=== PATIENT | male | born 1950 | race Asian ===

== ENCOUNTER 2019-11-20 06:18 | Day surgery (SDC) | payer MEDICARE ==
[2019-11-20] MEDS ORDERED: LACTATED RINGERS 1,000 ML IV ONE ×2 (06:39→07:37)
[2019-11-20 07:57] VITALS: BP 119/107
== END 2019-11-20 06:19 | disposition home or self-care (01) ==
LOC: SDS 06:18
PROVIDERS: ATTEND Internal Medicine Gastroenterology
DX: Z12.11 Encounter for screening for malignant neoplasm of colon (principal); I48.91 Unspecified atrial fibrillation; E11.9 Type 2 diabetes mellitus without complications; Z86.010 Personal history of colon polyps; Z79.82 Long term (current) use of aspirin; Z53.09 Procedure and treatment not carried out because of other contraindication
CPT/HCPCS: 36415; 80053; 83690; 84443; 85025; 93005; 99283; 99284

== ENCOUNTER 2019-11-20 08:07 | Emergency (ER) | payer MEDICARE ==
[2019-11-20] MEDS ORDERED: DILTIAZEM 50 MG/10 ML VIAL IVP ONE (08:33)
[2019-11-20 10:06] LABS: BASOPHILS % (AUTO) 0.3 %; EOSINOPHILS % (AUTO) 0.2 %; HGB - HEMOGLOBIN 14.6 g/dL (14.0-18.0); LYMPHOCYTES % (AUTO) 16.1 %; MEAN CORPUSCULAR HEMOGLOBIN 32.5 pg (27.0-31.0); MEAN CORPUSCULAR HGB CONC 34.7 g/dL (32.0-36.0); MEAN CORPUSCULAR VOLUME 93.8 fL (80.0-94.0); MEAN PLATELET VOLUME 9.2 fL (7.4-11.4); MONOCYTES # (AUTO) 0.3 10^3/uL (0.0-1.0); MONOCYTES % (AUTO) 4.7 %; NEUTROPHILS # (AUTO) 4.8 10^3/uL (1.5-6.6); NEUTROPHILS % (AUTO) 78.4 %; PLT - PLATELET COUNT 233 10^3/uL (130-450); RED BLOOD COUNT 4.49 10^6/uL (4.70-6.10); RED CELL DISTRIBUTION WIDTH 12.5 % (12.0-15.0); WHITE BLOOD COUNT 6.1 x10^3/uL (4.8-10.8)
[2019-11-20 10:24] LABS: ALBUMIN/GLOBULIN RATIO 1.2 (1.0-2.2); BILIRUBIN,TOTAL 1.4 mg/dL (0.2-1.0); CALCIUM 8.6 mg/dL (8.5-10.3); TOTAL PROTEIN 7.4 g/dL (6.7-8.2)
[2019-11-20 10:39] VITALS: BP 123/82
--- NOTE | 2019-11-20 10:56 | ED Physician Documentation ---
History of Present Illness - Stated complaint Stated Complaint: AFIB - Chief complaint Chief Complaint: Cardiac - History obtained from History obtained from: Patient - Additonal information Additional information: Patient comes emergency department complaining of feeling dizzy this morning after taking his colonoscopy prep. Patient states that he has felt this way once before and actually wore a Holter monitor for a month afterward, but did not end up with any diagnosis, as his Holter monitor. The patient states that when he got to [facility], he was found to have an elevated heart rate and to be in A. fib. Nurse who accompanied the patient to the emergency department from [facility] states that the patient's heart rate was in the 150s, though his blood pressure was normal. Patient states he did take his blood pressure at home this morning after finding the dizziness and states that it was 110 over 70s, which was somewhat lower than his usual blood pressure of 130s over 80s. Patient states he did not have any chest pain or shortness of breath. He states he feels much better now. Patient denies any swelling in his legs. No recent symptoms of illness. He states he was up a good portion of the night with the colonoscopy prep, and was not sure some of the dizziness was just tiredness from that. No other complaints at this time. Review of Systems Ten Systems: 10 systems reviewed and negative Constitutional: reports: Reviewed and negative Eyes: reports: Reviewed and negative Ears: reports: Reviewed and negative Nose: reports: Reviewed and negative Throat: reports: Reviewed and negative Cardiac: reports: Reviewed and negative Respiratory: reports: Reviewed and negative GI: reports: Reviewed and negative : reports: Reviewed and negative Skin: reports: Reviewed and negative Musculoskeletal: reports: Reviewed and negative Neurologic: reports: Reviewed and negative Psychiatric: reports: Reviewed and negative Endocrine: reports: Reviewed and negative Immunocompromised: reports: Reviewed and negative PD PAST MEDICAL HISTORY - Past Medical History Cardiovascular: None Respiratory: None Endocrine/Autoimmune: None GI: None : None Psych: None Musculoskeletal: None Derm: None - Past Surgical History General: Appendectomy - Present Medications Home Medications: Ambulatory Orders Medication Instructions Recorded Confirmed Aspirin [Adult Aspirin Regimen] 81 mg PO DAILY 11/17/19 11/20/19 Simvastatin 20 mg PO DAILY 11/17/19 11/20/19 Diltiazem HCl [Diltiazem ER] 90 mg PO BID PRN #30 cap.er.12h 11/20/19 metFORMIN [Glucophage] 500 mg PO 11/20/19 - Allergies Allergies/Adverse Reactions: Allergies Allergy/AdvReac Type Severity Reaction Status Date / Time No Known Drug Allergies Allergy Verified 11/20/19 08:16 PD ED PE NORMAL - Vitals Vital signs reviewed: Yes - General General: Alert and oriented X 3, No acute distress - HEENT HEENT: Atraumatic, PERRL, EOMI, Moist mucous membranes - Neck Neck: Supple, no meningeal sign - Cardiac Cardiac: RRR, No murmur, Strong equal pulses - Respiratory Respiratory: No respiratory distress, Clear bilaterally - Abdomen Abdomen: Soft, Non tender, Non distended - Derm Derm: Warm and dry - Extremities Extremities: No deformity, No edema, No calf tenderness / cord - Neuro Neuro: Alert and oriented X 3 - Psych Psych: Normal mood, Normal affect Results - Vitals Vitals: Vital Signs - 24 hr 11/20/19 11/20/19 11/20/19 08:08 08:30 09:00 Temperature 36.8 C Heart Rate 81 81 82 Respiratory 15 10 L 15 Rate Blood Pressure 112/69 118/83 H 116/86 H O2 Saturation 99 98 99 11/20/19 11/20/19 11/20/19 09:30 10:00 10:30 Temperature Heart Rate 83 75 79 Respiratory 13 11 L 15 Rate Blood Pressure 135/89 H 126/84 H 123/82 H O2 Saturation 98 98 98 Oxygen O2 Source Room air - EKG (time done) 0811 Rate: Rate (enter#) (81) Rhythm: NSR [place]: Normal Intervals: Normal MS QRS: Normal Ischemia: Normal ST segments, T wave inversion (Lead III) Compare to prior EKG: Old EKG unavailable Computer interpretation: Agree with computer - Labs Labs: Laboratory Tests 11/20/19 11/20/19 11/20/19 10:00 10:00 10:00 WBC 6.1 RBC 4.49 L Hgb 14.6 Hct 42.1 MCV 93.8 MCH 32.5 H MCHC 34.7 RDW 12.5 Plt Count 233 MPV 9.2 Neut # (Auto) 4.8 Lymph # (Auto) 1.0 L [place] # (Auto) 0.3 Eos # (Auto) 0.0 Baso # (Auto) 0.0 Absolute Nucleated RBC 0.00 Nucleated RBC % 0.0 Sodium 134 L Potassium 3.9 Chloride 101 Carbon Dioxide 21 Anion Gap 12.0 BUN 14 Creatinine 1.0 Estimated GFR (MDRD) 74 L Glucose 103 H Calcium 8.6 Total Bilirubin 1.4 H AST 23 ALT 26 Alkaline Phosphatase 46 Total Protein 7.4 Albumin 4.0 Globulin 3.4 Albumin/Globulin Ratio 1.2 Lipase 24 TSH 1.38 PD MEDICAL DECISION MAKING - ED course Complexity details: reviewed results, re-evaluated patient, considered differential, d/w patient ED course: The patient was found to be in normal sinus rhythm upon arrival in the emergency department and was completely asymptomatic at that time. Laboratory studies were checked, including TSH, and found to be normal. EKG showed normal sinus rhythm. I discussed with the patient that preop is stated that the patient will not even be considered for another colonoscopy until he has seen cardiology and been cleared. Patient has been given the option being placed on a low dose of Cardizem for preventative measures, or of waiting until he sees cardiology to determine whether he wants to be on these medications or not. Additionally, given the patient the option to have a prescription for Cardizem to take as needed if he develops tachycardia again. The patient has opted for third option. We have discussed that if the patient Finds that his pulse is greater than 110 bpm, he may consider taking the Cardizem, but should check his blood pressure first. If his systolic is less than 110, he should come to the emergency department instead of taking the Cardizem at home. I have given him contact information for [facility] cardiology in [place], as patient does live in [place] and he and his and stated it would be easier for him to go to [place]. Patient is advised to call them as soon as possible to make follow-up appointment.We have discussed home management of the symptoms, as well as usual indications for return to the emergency department Departure - Departure Disposition: 01 Home, Self Care Clinical Impression: Atrial fibrillation with rapid ventricular response Condition: Stable Instructions: ED Afib Prescriptions: Diltiazem HCl [Diltiazem ER] 90 mg PO BID PRN #30 cap.er.12h PRN Reason: Tachycardia Comments: Please call [phone] to set up an appointment to follow-up with cardiology through [facility] in [place]. I would have discussed, you may take the medication prescribed, as needed for rapid heart rate (greater than 110 beats per minute). It is advisable to take your blood pressure before taking this medication. If your blood pressure top number is less then 110, you should refrain from taking the medicine and come to the emergency department instead. Discharge Date/Time: 11/20/19 11:05
== END 2019-11-20 11:05 | disposition home or self-care (01) ==
LOC: ED 08:07
DX: I48.20 Chronic atrial fibrillation, unspecified (principal); Z79.82 Long term (current) use of aspirin
CPT/HCPCS: 36415; 80053; 83690; 84443; 85025; 93005; 99283; 99284

== ENCOUNTER 2020-04-15 07:13 | Inpatient (IN) | payer MEDICARE ==
[2020-04-15] MEDS ORDERED: LACTATED RINGERS 1,000 ML IV ONE ×3 (07:20→09:10)
[2020-04-15 09:20] LABS: BASOPHILS % (AUTO) 0.5 %; EOSINOPHILS % (AUTO) 0.3 %; HGB - HEMOGLOBIN 13.5 g/dL (14.0-18.0); LYMPHOCYTES # (AUTO) 0.9 10^3/uL (1.5-3.5); LYMPHOCYTES % (AUTO) 15.3 %; MEAN CORPUSCULAR HEMOGLOBIN 32.5 pg (27.0-31.0); MEAN CORPUSCULAR HGB CONC 33.8 g/dL (32.0-36.0); MEAN CORPUSCULAR VOLUME 96.1 fL (80.0-94.0); MEAN PLATELET VOLUME 9.9 fL (7.4-11.4); MONOCYTES # (AUTO) 0.4 10^3/uL (0.0-1.0); MONOCYTES % (AUTO) 7.2 %; NEUTROPHILS # (AUTO) 4.6 10^3/uL (1.5-6.6); NEUTROPHILS % (AUTO) 76.5 %; PLT - PLATELET COUNT 236 10^3/uL (130-450); RED BLOOD COUNT 4.15 10^6/uL (4.70-6.10); RED CELL DISTRIBUTION WIDTH 12.5 % (12.0-15.0); WHITE BLOOD COUNT 6.1 x10^3/uL (4.8-10.8)
[2020-04-15 09:33] LABS: ALBUMIN 3.7 g/dL (3.2-5.5); ALBUMIN/GLOBULIN RATIO 1.1 (1.0-2.2); BILIRUBIN,TOTAL 1.2 mg/dL (0.2-1.0); CALCIUM 8.7 mg/dL (8.5-10.3); CREATININE 1.6 mg/dL (0.6-1.2); TOTAL PROTEIN 7.1 g/dL (6.7-8.2)
[2020-04-15] MEDS ORDERED: SODIUM CHLORIDE FLUSH 0.9% 10 ML SYRINGE IVP PRN (11:11)
[2020-04-15] MEDS ORDERED: ACETAMINOPHEN 325 MG TABLET PO PRN (11:11)
[2020-04-15] MEDS ORDERED: ONDANSETRON 4 MG/2 ML VIAL IVP PRN (11:11)
--- NOTE | 2020-04-15 11:42 | XRAY Report ---
PROCEDURE: Chest 1 View X-Ray INDICATIONS: Afib, Hypotension TECHNIQUE: One view of the chest was acquired. COMPARISON: None FINDINGS: Surgical changes and devices: None. Lungs and pleura: No pleural effusions or pneumothorax. Streaky opacities noted in the left lung bas e likely represent atelectasis. Mediastinum: Mediastinal contours appear normal. Heart size is normal. Bones and chest wall: No suspicious bony lesions. Overlying soft tissues appear unremarkable. IMPRESSION: 1. No acute cardiopulmonary disease process. 2. Streaky opacities in left lung base likely represent atelectasis. Reviewed by: Maricarmen Polanco MD, PhD on 04/15/2020 11:41 AM [facility] Approved by: Maricarmen Polanco MD, PhD on 04/15/2020 11:41 AM [facility] Station ID: [id number]
[2020-04-15] MEDS ORDERED: DIGOXIN 500 MCG/2 ML AMP IVP STA (11:50)
[2020-04-15] MEDS ORDERED: SODIUM CHLORIDE 0.9% 500 ML IV ONE (11:50)
[2020-04-15] MEDS: SODIUM CHLORIDE 0.9% 1,000 ML IV SCH ×2 (11:58→14:07)
--- NOTE | 2020-04-15 12:23 | HISTORY & PHYSICAL EXAMINATION ---
DATE OF SERVICE: 04/15/2020 Physician: Debbie Ray MD HISTORY OF PRESENT ILLNESS: This is a 69-year-old male of descent who has a history of diabetes on Metformin, hyperlipidemia on a statin. He underwent a colonoscopy in October of this year, the prep that he had before that colonoscopy resulted in him being lightheaded and in the recovery after the colonoscopy, he went into rapid atrial fibrillation. He was taken from the PACU to the emergency room then and had converted spontaneously to sinus rhythm. His disposition after the ER consisted of starting him on Cardizem tablets to take as a "pill in the pocket" treatment if he should get a heart rate over 110. He was also advised to see a Penal Officer for further evaluation and to be cleared for a future colonoscopy. The patient states he saw a Penal Officer at [place] (cannot remember his name) and there was no Echo or stress test done. The Penal Officer advised continuation with the same recommendation: to only use oral Cardizem p.r.n. heart rate greater than 110, and the patient was to measure his blood pressure to assure it was not hypotensive at the time, before taking Cardizem. The patient states he wore a 2-week monitor, ordered by that Penal Officer, which was entirely normal. He has had no episodes of feeling any palpitations (but he is currently in atrial fibrillation and does not feel palpitations now, however). He has been on aspirin since that October ER visit, taken daily. Today, the patient came in for a scheduled colonoscopy with polypectomy. He states that his prep again caused him to be lightheaded and he had a stumbling gait this morning. He had stable vital signs and was taken to the procedure and a polyp was removed. The other findings in the colon were essentially normal, per the patient. In recovery in PACU, he went into atrial fibrillation with rapid ventricular response, at rates of 140-150. His blood pressure with this is hypotensive with blood pressure of 79/50. The patient is not in any distress and does not feel the tachycardia. He admits to me he has never needed to take the Cardizem in these 6 months, that it was prescribed because he "did not feel any palpitations." The patient's mentation is slightly slow, which may be related to just having had conscious sedation, but also possibly from this low blood pressure. The patient will be admitted to inpatient status for management of atrial fibrillation with rapid ventricular response and for treatment of hypotension. PAST MEDICAL HISTORY: Paroxysmal atrial fibrillation, diabetes mellitus, hyperlipidemia. SOCIAL HISTORY: The patient is a nonsmoker who never smoked, drinks no alcohol except very rarely, he lives with his in [place]. FAMILY HISTORY: No inherited diseases. REVIEW OF SYSTEMS: There has been no fever, cough, diarrhea. He has been careful during the COVID isolation period. He stopped taking his aspirin, metformin and statin medicine 4 days before this procedure today. A comprehensive review of systems was performed and the pertinent positives are listed, the rest are negative. PHYSICAL EXAMINATION GENERAL: Middle-aged male. He is in no distress, sitting upright. VITAL SIGNS: Blood pressure 84/66, heart rate 147 in atrial fibrillation, afebrile, room air saturation 99%. HEENT: Unremarkable. NECK: Shows no JVD in a vertical position. No carotid bruits are heard. CHEST: Clear. HEART: Irregular, tachycardic. No murmurs are heard. ABDOMEN: Soft with decreased bowel sounds. Nontender. No organomegaly. Nondistended. EXTREMITIES: No clubbing, cyanosis or edema. NEUROLOGIC: Intact except some hesitation in speech noted when he was speaking on the phone to his . His gait was not assessed, as he is in bed and hypotensive. LABORATORY DATA: Labs were done in the PACU, ordered by the surgeon after the colonoscopy, when he went into rapid atrial fibrillation. These labs show sodium 137, potassium 4.3, chloride 100, CO2 of 19, anion gap 18, BUN 18, creatinine 1.6, glucose 106. Bilirubin 1.2. Normal liver tests. The hs- troponin normal at 9.1. White blood count 6.1, hemoglobin 13.5 with MCV of 96, RDW 12.5 and platelet count normal at 236. No INR was done. EKG: Atrial fibrillation with rapid rate, diffuse nonspecific ST-T changes. Compared to an EKG from October, the atrial fibrillation is new. IMPRESSION/DIAGNOSES 1. Hypotension. 2. Atrial fibrillation with rapid ventricular response. 3. Paroxysmal atrial fibrillation. 4. Acute kidney injury. 5. Abnormal electrocardiogram. 6. Diabetes mellitus. 7. Hyperlipidemia. PLAN: Admit the patient to the ICU because of the hypotension. Begin with fluid boluses and maintenance fluids. Check troponins x2, TSH and obtain an Echo to evaluate for structural heart disease. Begin the patient on iv Digoxin for rate slowing unless the blood pressure improves with the fluid pushes. We will plan to resume either his p.o. Cardizem or start a Diliazem drip, when blood pressure is better as well. Depending on his Echo results, his CHADS score will be calculated and he will either continue on daily aspirin or be advised about needing anticoagulation. Follow his BMP daily. Evaluation for coronary disease would need to be done after hospitalization. Resume his diet, advancing from clear liquids to a diabetic diet if okay with general surgery. General surgery consult will be requested to give further recommendations after the polypectomy he had today. Obtain an admission CXR. Check serum ketones, given the high anion gap in a diabetic. DEEP VENOUS THROMBOSIS PROPHYLAXIS: SCDs. CODE STATUS: FULL CODE. ATTESTATION: Patient is expected to be discharged or transferred to another facility within 96 hours: Yes. cc: Cristopher Hunt MD TD: 04/15/2020 11:51 MTDD
[2020-04-15 13:20] LABS: C. PNEUMONIAE- RESP PCR PANEL NOT DETECTED
[2020-04-15 14:32] LABS: GLUCOSE, URINE (UA) NEGATIVE (NEGATIVE); KETONES,URINE (UA) 15 mg/dL (NEGATIVE); LEUKOCYTE ESTERASE, URINE NEGATIVE (NEGATIVE); NITRITE,URINE NEGATIVE (NEGATIVE); OCCULT BLOOD,URINE NEGATIVE (NEGATIVE); PH,URINE 5.5 PH (5.0-7.5); PROTEIN,URINE NEGATIVE (NEGATIVE); UROBILINOGEN,URINE 0.2 (NORMAL) E.U./dL (NORMAL)
[2020-04-15 14:33] LABS: CLARITY,URINE CLEAR (CLEAR)
[2020-04-15 14:38] LABS: BILIRUBIN,URINE NEGATIVE (NEGATIVE); ICTOTEST,URINE NEGATIVE
[2020-04-15] MEDS ORDERED: diltiaZEM INJ 125 MG in DEXTROSE 5% 100 ML IV SCH (15:15)
--- NOTE | 2020-04-15 15:15 | PHARMACY PROGRESS NOTE ---
- Best Possible Medication History Admit Date and Time: 04/15/20 1111 Processed by: Nursing Medication History completed: Yes As the person ultimately responsible for medication therapy, providers are able to order a medication from an existing home medication list in [facility] via the "Reconcile Routine" prior to Confirmation of that medication by computer network support specialist. Such practice is discouraged except when the physician, in their clinical judgment, deems that a medical need exists for a medication without regard to previous use.
--- NOTE | 2020-04-15 16:34 | CONSULTATION NOTE ---
Referring Provider Name of Referring Provider:: Dr. Ray Consult Date: 04/15/20 Chief Complaint - Chief Complaint Chief Complaint: Tachyarrhythmia during colonoscopy History of Present Illness - Admitted From Admitted From:: Postanesthesia care unit - History Obtained From History obtained from: Patient Exam Limitations: NONE - History of Present Illness HPI Comment/Other: 69-year-old male who was attempted for colonoscopy recently at which time he was reported for an arrhythmia that on work-up was unremarkable. In October he was seen in the ER at which time he was thereafter referred to cardiology. Per patient there was no significant concerns or findings and patient thereafter was cleared to proceed with endoscopic evaluation. Patient has no symptoms, denying chest pain and/or shortness of breath, and again was advised of the indication to undergo colonoscopy for which he was a scheduled. He reported only nausea associated with his bowel prep. He underwent colonoscopy which was notable only for tachyarrhythmia during endoscopic evaluation. No hypotensive episodes. Single ascending colonic diminutive polyp was removed. Post procedure he continued to have persistent arrhythmia consistent with atrial fibrillation and hospitalist consult was called to evaluate the patient in postanesthesia care unit. I ordered CBC, CMP, troponin and stat EKG. History - Past Medical History Cardiovascular: reports: High cholesterol Respiratory: reports: None Endocrine/Autoimmune: reports: Type 2 diabetes GI: reports: Colon polyps : reports: None HEENT: reports: None Psych: reports: None Musculoskeletal: reports: None Derm: reports: None MRSA Hx?: No - Past Surgical History General: reports: Appendectomy Meds/Allgy - Home Medications Home Medications: Ambulatory Orders Medication Instructions Recorded Confirmed Aspirin [Adult Aspirin Regimen] 81 mg PO DAILY 11/17/19 04/15/20 Simvastatin 20 mg PO QPM 11/17/19 04/15/20 Diltiazem HCl [Diltiazem ER] 90 mg PO BID PRN #30 cap.er.12h 11/20/19 04/15/20 metFORMIN [Glucophage] 500 mg PO DAILY 11/20/19 04/15/20 - Allergies Allergies/Adverse Reactions: Allergies Allergy/AdvReac Type Severity Reaction Status Date / Time No Known Drug Allergies Allergy Verified 11/20/19 08:16 Review of Systems - Constitutional Constitutional: reports: Fatigue - Cardiovascular Cariovascular: reports: Irregular heart rate, Lightheadedness. denies: Palpitations, Chest pain, Syncope - Gastrointestinal Gastrointestinal: reports: Nausea, Vomiting. denies: Abdominal pain, Abdominal distention, Constipation, Black stools, Bloody stools - All Other Systems All Other Systems: reports: Reviewed and negative Exam - Vital Signs Vital Signs: Vital Signs x48h Temp Pulse Pulse Resp BP BP Pulse Ox 04/15/20 16:33 36.8 C 04/15/20 16:00 94 18 100/66 98 04/15/20 15:45 109 H 110/78 04/15/20 15:33 121/71 04/15/20 15:00 97 16 102/74 97 04/15/20 14:16 116 H 8 L 96/69 04/15/20 14:01 136 H 20 96/64 04/15/20 13:31 126 H 16 91/80 04/15/20 13:00 117 H 16 115/78 04/15/20 12:53 36.4 C L 143 H 16 100 04/15/20 12:46 126 H 11 L 95/82 H 04/15/20 12:31 131 H 24 93/77 04/15/20 12:18 143 H 04/15/20 12:16 147 H 10 L 121/103 H 04/15/20 12:15 117 H 9 L 04/15/20 12:01 149 H 17 04/15/20 12:00 131 H 132 H 17 127/106 H 119/82 H 100 04/15/20 11:59 141 H 12 04/15/20 11:50 136 H 23 119/82 H 04/15/20 11:47 137 H 04/15/20 11:32 147 H 20 84/66 L 99 04/15/20 11:00 36.4 C L 144 H 14 92/65 99 04/15/20 10:30 142 H 13 78/65 L 99 04/15/20 10:19 143 H 10 L 87/65 L 99 04/15/20 09:41 153 H 21 89/67 L 96 04/15/20 09:20 125 H 10 L 93/68 98 04/15/20 09:00 36.4 C L 138 H 14 89/67 L 100 - Physical Exam General Appearance: positive: No acute distress, Alert Eyes Bilateral: positive: Normal inspection, PERRL, EOMI ENT: positive: ENT inspection nml Neck: positive: Nml inspection Respiratory: positive: Chest non-tender, No respiratory distress, Breath sounds nml. negative: Wheezes, Rales, Rhonchi Cardiovascular: positive: Irregularly irregular, Tachycardia Abdomen: positive: Non-tender, No distention. negative: Tenderness, Guarding, Rebound Extremities: positive: Non-tender, Full ROM, Nml appearance Neurologic/Psychiatric: positive: Oriented x3, CN's nml (2-12), Motor nml, Sensation nml, Mood/affect nml Conclusion and Plan - Lab Results Laboratory Results 04/15/20 16:28: POC Whole Bld Glucose 98 04/15/20 15:33: Troponin I High Sens 79.4 H* 04/15/20 14:28: Urine Color YELLOW, Urine Clarity CLEAR, Urine pH 5.5, Ur Specific [place] 1.015, Urine Protein NEGATIVE, Urine Glucose (UA) NEGATIVE, Urine Ketones 15 H, Urine Occult Blood NEGATIVE, Urine Nitrite NEGATIVE, Urine Bilirubin NEGATIVE, Urine Urobilinogen 0.2 (NORMAL), Ur Leukocyte Esterase NEGATIVE, Ur Microscopic Review NOT INDICATED, Urine Culture Comments NOT INDICATED 04/15/20 12:10: Nasal Adenovirus (PCR) NOT DETECTED, Nasal B. parapertussis DNA (PCR) NOT DETECTED, Nasal Coronavir 229E PCR NOT DETECTED, Nasal Coronavir HKU1 PCR NOT DETECTED, Nasal Coronavir NL63 PCR NOT DETECTED, Nasal Coronavir OC43 PCR NOT DETECTED, Nasal Enterovir/Rhinovir PCR NOT DETECTED, Nasal Influenza B PCR NOT DETECTED, Nasal Influenza A PCR NOT DETECTED, Nasal Parainfluen 1 PCR NOT DETECTED, Nasal Parainfluen 2 PCR NOT DETECTED, Nasal Parainfluen 3 PCR NOT DETECTED, Nasal Parainfluen 4 PCR NOT DETECTED, Nasal RSV (PCR) NOT DETECTED, Nasal B.pertussis DNA PCR NOT DETECTED, Nasal C.pneumoniae (PCR) NOT DETECTED, Ron Human Metapneumo PCR NOT DETECTED, Nasal M.pneumoniae (PCR) NOT DETECTED, N fredis SARS-CoV-2 (PCR) NOT DETECTED 04/15/20 12:10: Nasal Screen MRSA (PCR) NEGATIVE 04/15/20 11:32: TSH 1.11 04/15/20 11:32: Magnesium 2.3 04/15/20 11:32: Troponin I High Sens 20.2 H* 04/15/20 09:14: Sodium 137, Potassium 4.3, Chloride 100 L, Carbon Dioxide 19 L, Anion Gap 18.0 H, BUN 18, Creatinine 1.6 H, Estimated GFR (MDRD) 43 L, Glucose 106 H, Calcium 8.7, Total Bilirubin 1.2 H, AST 31, ALT 32, Alkaline Phosphatase 43, Total Protein 7.1, Albumin 3.7, Globulin 3.4, Albumin/Globulin Ratio 1.1 04/15/20 09:14: WBC 6.1, RBC 4.15 L, Hgb 13.5 L, Hct 39.9 L, MCV 96.1 H, MCH 32.5 H, MCHC 33.8, RDW 12.5, Plt Count 236, MPV 9.9, Neut # (Auto) 4.6, Lymph # (Auto) 0.9 L, [place] # (Auto) 0.4, Eos # (Auto) 0.0, Baso # (Auto) 0.0, Absolute Nucleated RBC 0.00, Nucleated RBC % 0.0 04/15/20 09:14: Troponin I High Sens 9.1 04/15/20 07:48: POC Whole Bld Glucose 113 H - Diagnosis Diagnosis: 1. Atrial fibrillation/tachyarrhythmia. 2. Diminutive a sending colonic polyp, status post cold forcep polypectomy. 3. Diabetes amongst other comorbid states. 4. Admission to hospitalist service for cardiac monitoring - Plan Plan: From a colorectal perspective the diminutive polyp noted in the ascending colon is not contraindication to proceed with systemic anticoagulation. Given concern for acute coronary syndrome, I have no concerns for any contraindication as a relates to this polyp and anticoagulation. Obviously there is risk of bleeding and this would be easily accessible endoscopically for clipping if necessary however I do not believe that this would be any significant source of hemorrhage in the setting of anticoagulation. Discussed case with hospitalist and expressed no concern as it relates to systemic anticoagulation at this time. Patient should be monitored for serial H&H as well as for hematochezia.
[2020-04-15] MEDS: SODIUM CHLORIDE FLUSH 0.9% 10 ML SYRINGE IVP SCH (17:21)
[2020-04-15] MEDS ORDERED: ASPIRIN CHEW 81 MG TABLET PO STA (17:27)
[2020-04-15] MEDS ORDERED: ATORVASTATIN 40 MG TABLET PO STA (17:27)
[2020-04-15 17:46] LABS: HGB - HEMOGLOBIN 14.3 g/dL (14.0-18.0); MEAN CORPUSCULAR HEMOGLOBIN 32.1 pg (27.0-31.0); MEAN CORPUSCULAR HGB CONC 33.9 g/dL (32.0-36.0); MEAN CORPUSCULAR VOLUME 94.6 fL (80.0-94.0); MEAN PLATELET VOLUME 9.7 fL (7.4-11.4); RED BLOOD COUNT 4.46 10^6/uL (4.70-6.10); RED CELL DISTRIBUTION WIDTH 12.7 % (12.0-15.0); WHITE BLOOD COUNT 6.7 x10^3/uL (4.8-10.8)
[2020-04-15] MEDS ORDERED: HEPARIN 25000UNITS/500ML (D5W) 25,000 UNIT/500 ML BAG IV SCH (18:00)
[2020-04-15] MEDS ORDERED: HEPARIN 5,000 UNIT/ML VIAL IVP ONE (18:15)
[2020-04-15] MEDS ORDERED: FAMOTIDINE 20 MG TABLET PO SCH (21:00)
[2020-04-16] MEDS: SODIUM CHLORIDE 0.9% 1,000 ML IV SCH (02:29)
[2020-04-16 05:04] LABS: BASOPHILS % (AUTO) 0.8 %; EOSINOPHILS # (AUTO) 0.1 10^3/uL (0.0-0.7); EOSINOPHILS % (AUTO) 2.1 %; HGB - HEMOGLOBIN 12.3 g/dL (14.0-18.0); LYMPHOCYTES # (AUTO) 1.9 10^3/uL (1.5-3.5); LYMPHOCYTES % (AUTO) 37.2 %; MEAN CORPUSCULAR HEMOGLOBIN 32.5 pg (27.0-31.0); MEAN CORPUSCULAR HGB CONC 33.7 g/dL (32.0-36.0); MEAN CORPUSCULAR VOLUME 96.3 fL (80.0-94.0); MEAN PLATELET VOLUME 9.9 fL (7.4-11.4); MONOCYTES # (AUTO) 0.5 10^3/uL (0.0-1.0); MONOCYTES % (AUTO) 9.6 %; NEUTROPHILS # (AUTO) 2.6 10^3/uL (1.5-6.6); NEUTROPHILS % (AUTO) 50.1 %; PLT - PLATELET COUNT 215 10^3/uL (130-450); RED BLOOD COUNT 3.79 10^6/uL (4.70-6.10); RED CELL DISTRIBUTION WIDTH 12.7 % (12.0-15.0); WHITE BLOOD COUNT 5.1 x10^3/uL (4.8-10.8)
[2020-04-16 05:08] LABS: INR 1.2 (0.8-1.2); PT - PROTHROMBIN TIME 13.6 secs (9.9-12.6)
[2020-04-16 05:17] LABS: CALCIUM 8.4 mg/dL (8.5-10.3); MAGNESIUM 2.2 mg/dL (1.7-2.8); PHOSPHORUS 2.9 mg/dL (2.5-4.6)
[2020-04-16] MEDS: SODIUM CHLORIDE FLUSH 0.9% 10 ML SYRINGE IVP SCH (06:58)
[2020-04-16] MEDS ORDERED: POTASSIUM CHLORIDE 20 MEQ TABLET PO ONE (07:00)
[2020-04-16] MEDS ORDERED: diltiaZEM CD 120 MG CAPSULE PO SCH (09:00)
[2020-04-16 09:58] LABS: HGB - HEMOGLOBIN 12.7 g/dL (14.0-18.0); MEAN CORPUSCULAR HEMOGLOBIN 31.7 pg (27.0-31.0); MEAN CORPUSCULAR HGB CONC 32.8 g/dL (32.0-36.0); MEAN CORPUSCULAR VOLUME 96.5 fL (80.0-94.0); MEAN PLATELET VOLUME 9.8 fL (7.4-11.4); RED BLOOD COUNT 4.01 10^6/uL (4.70-6.10); RED CELL DISTRIBUTION WIDTH 12.9 % (12.0-15.0)
[2020-04-16] MEDS ORDERED: METOPROLOL TARTRATE 25 MG TABLET PO SCH (11:00)
[2020-04-16] MEDS ORDERED: AMINOPHYLLINE 500 MG/20 ML VIAL ONE (11:37)
[2020-04-16] MEDS ORDERED: REGADENOSON 0.4 MG/5 ML SYRINGE IVP ONE ×2 (11:37→13:32)
[2020-04-16] MEDS ORDERED: MIDAZOLAM 2 MG/2 ML VIAL IVP ONE (13:50)
[2020-04-16] MEDS ORDERED: fentaNYL 250 MCG/5 ML VIAL IVP ONE (13:50)
--- NOTE | 2020-04-16 14:42 | DISCHARGE SUMMARY ---
"Discharge Summary Admit Date: 04/15/20 Discharge Date: 04/16/20 Discharging Provider: Wally Killian Primary Care Provider: Cristopher Hunt Code Status: Attempt Resuscitation Condition at Discharge: Stable Discharge Disposition: 01 Home, Self Care - DIAGNOSES Admission Diagnoses: Hypotension Atrial fibrillation with rapid ventricular response Paroxysmal atrial fibrillation Acute kidney injury Abnormal EKG Diabetes mellitus Hyperlipidemia Discharge Diagnoses with Status of Each Condition: Hypotension - resolved. Atrial fibrillation with rapid ventricular response - resolved. Elevated troponin - improved. Acute kidney injury - resolved. Diabetes mellitus - stable. Hyperlipidemia - stable. - HPI History of Present Illness: H&P per Dr. Gunderson: This is a 69-year-old male of descent with a history of diabetes on Metformin, hyperlipidemia on a statin. He underwent a colonoscopy in October of this year, the prep that he had before a colonoscopy resulted him in being lightheaded in the recovery after colonoscopy, he went to rapid atrial fibrillation. He was seen in the PACU to the emergency room and then he converted spontaneously to sinus rhythm. His disposition after the ER consisted of starting him on Cardizem tablets to take as a pill in the pocket treatment if he should get a heart of 110. He was also advised to see a development professional for further evaluation and to be cleared for future colonoscopy. He saw a development professional at [place] and there was no echo or stress test done. The development professional advised continuation of the same recommendation. The patient states that he wore 2-week monitor, ordered by the development professional, which was entirely normal. He has had no episodes of feeling of any palpitations. Today, the patient came in for scheduled colonoscopy with polypectomy. He states that his prep again caused him to be lightheaded and he had a stumbling gait this morning. He has stable vital signs was taken to procedure and a polyp was removed. The findings in the colon were essentially normal, per the patient. In recovery in PACU, he went atrial fibrillation with rapid ventricular sponsor at rates of 1 40-1 50. He was hypotensive with blood pressure of 39/50. He was not in distress does not feel tachycardia. He admits to me he has never needed to take the Cardizem in the 6 months, that is prescribed because he did not feel any palpitations. The patient mentation is slightly slow, which may be related to just having had conscious sedation, but also possibly from his low blood pressure. Patient be admitted to inpatient status for management of atrial relation rapid response and for treatment of hypotension. - CONSULTS | PROCEDURES Procedures: Preliminary echocardiogram revealed an ejection fraction of 60 to 65%. Mild increase in left atrial volume index. No significant valvular disease. He underwent Lexiscan pharmaceutical stress test which revealed an abnormal resting EKG that was a normal sinus rhythm. There was first-degree block left atrial enlargement is a left anterior fascicular block. He had no symptoms with pharmaceutical stress testing and no ischemic changes developed on EKG. Myocardial perfusion imaging showed no perfusion defect suggest myocardial ischemia or infarct. Normal left ventricular volume and systolic function. - HOSPITAL COURSE Hospital Course: He was admitted to the intensive care unit after he developed atrial relation rapid ventricular response after his colonoscopy. He was initially hypotensive with systolic in the 70s over 50s. This resolved with IV fluids. He was given IV digoxin with improvement in his heart rate. He did have acute kidney injury the creatinine of 1.6 and this resolved with IV fluids. He converted back to sinus rhythm that evening and has remained rate controlled since then. Patient points did increase from normal to greater than 110. This was discussed with his development professional who felt this was likely demand ischemia but recommended obtaining a stress test which was obtained the following day. This did not suggest any ischemia and myocardial perfusion imaging was unremarkable. The patient never had chest pain or dyspnea. It is suspect that he likely became dehydrated from the bowel prep for the colonoscopy. We did discuss anticoagulation and general surgery was okay with this and so he was discharged on Eliquis 5 mg twice daily. He was also discharged on metoprolol 25 mg twice daily. He was asked to follow-up with his primary care provider as well as his development professional to discuss long-term anticoagulation given the paroxysmal nature of his atrial fibrillation. Echocardiogram obtained during this hospitalization showed preserved ejection fraction with no significant valvular disease. He did have a single ascending colonic polyp removed that was small. The patient was initially admitted under inpatient status but due to his quick and unexpected improvement, he was discharged after 1 midnight. - ALLERGIES Allergies/Adverse Reactions: Allergies Allergy/AdvReac Type Severity Reaction Status Date / Time No Known Drug Allergies Allergy Verified 11/20/19 08:16 - MEDICATIONS Home Medications: Ambulatory Orders Medication Instructions Recorded Confirmed Simvastatin 20 mg PO QPM 11/17/19 04/15/20 metFORMIN [Glucophage] 500 mg PO DAILY 11/20/19 04/15/20 Apixaban [Eliquis] 5 mg PO BID #60 tablet 04/16/20 Metoprolol Tartrate [Lopressor] 25 mg PO BID #60 tablet 04/16/20 - PHYSICAL EXAM AT DISCHARGE General Appearance: positive: No acute distress, Alert Eyes Bilateral: positive: Normal inspection, Conjunctivae nml ENT: positive: ENT inspection nml Neck: positive: Nml inspection Respiratory: positive: No respiratory distress. negative: Wheezes, Rales Cardiovascular: positive: Regular rate & rhythm, No murmur. negative: Tachycardia, Bradycardia, Systolic murmur Abdomen: positive: Non-tender, No distention. negative: Tenderness, Guarding, Rebound Skin: positive: Warm, Dry Extremities: positive: Full ROM, No pedal edema Neurologic/Psychiatric: positive: Oriented x3, Motor nml. negative: Disoriented to person, Disoriented to place, Disoriented to time Physical Exam Other/Comments: Vital Signs - 24 hr 04/15/20 04/15/20 04/15/20 16:33 17:00 18:00 Temperature 36.8 C Heart Rate Heart Rate [ 90 90 Monitoring electrodes] Respiratory 17 17 Rate Blood Pressure Blood Pressure 126/75 126/75 [Right Brachial artery] O2 Saturation 98 98 04/15/20 04/15/20 04/15/20 19:00 20:00 21:00 Temperature 37 C Heart Rate Heart Rate [ 78 78 70 Monitoring electrodes] Respiratory 20 16 16 Rate Blood Pressure Blood Pressure 115/63 117/68 120/78 [Right Brachial artery] O2 Saturation 97 98 99 04/15/20 04/15/20 04/16/20 22:00 23:05 02:07 Temperature 36.8 C Heart Rate Heart Rate [ 67 72 66 Monitoring electrodes] Respiratory 18 18 14 Rate Blood Pressure Blood Pressure 123/82 H 121/74 107/60 [Right Brachial artery] O2 Saturation 98 95 96 04/16/20 04/16/20 04/16/20 08:00 08:11 09:00 Temperature 36.8 C 36.8 C Heart Rate 62 Heart Rate [ 64 61 Monitoring electrodes] Respiratory 22 14 13 Rate Blood Pressure Blood Pressure 113/73 130/77 [Right Brachial artery] O2 Saturation 99 98 98 04/16/20 04/16/20 04/16/20 12:38 12:49 14:00 Temperature 37 C Heart Rate Heart Rate [ 72 65 Monitoring electrodes] Respiratory 22 18 Rate Blood Pressure 146/90 H Blood Pressure 146/90 H 136/79 H [Right Brachial artery] O2 Saturation 99 99 04/16/20 15:55 Temperature 37 C Heart Rate Heart Rate [ 99 Monitoring electrodes] Respiratory 14 Rate Blood Pressure Blood Pressure 153/94 H [Right Brachial artery] O2 Saturation 97 Oxygen O2 Source Room air - LABS Result Diagrams: 04/16/20 09:00 04/16/20 04:25 Other Lab Results: Laboratory Results - last 24 hr 04/15/20 04/15/20 04/15/20 16:28 17:39 17:39 WBC 6.7 RBC 4.46 L Hgb 14.3 Hct 42.2 MCV 94.6 H MCH 32.1 H MCHC 33.9 RDW 12.7 Plt Count 260 MPV 9.7 Neut # (Auto) Lymph # (Auto) Harney # (Auto) Eos # (Auto) Baso # (Auto) Absolute Nucleated RBC Nucleated RBC % PT INR Anti-Xa Level 0.1 Sodium Potassium Chloride Carbon Dioxide Anion Gap BUN Creatinine Estimated GFR (MDRD) Glucose POC Whole Bld Glucose 98 Calcium Phosphorus Magnesium Troponin I High Sens 04/15/20 04/15/20 04/16/20 20:42 22:57 04:25 WBC 5.1 RBC 3.79 L Hgb 12.3 L Hct 36.5 L MCV 96.3 H MCH 32.5 H MCHC 33.7 RDW 12.7 Plt Count 215 MPV 9.9 Neut # (Auto) 2.6 Lymph # (Auto) 1.9 Harney # (Auto) 0.5 Eos # (Auto) 0.1 Baso # (Auto) 0.0 Absolute Nucleated RBC 0.00 Nucleated RBC % 0.0 PT INR Anti-Xa Level Sodium Potassium Chloride Carbon Dioxide Anion Gap BUN Creatinine Estimated GFR (MDRD) Glucose POC Whole Bld Glucose 135 H Calcium Phosphorus Magnesium Troponin I High Sens 136.8 H* 04/16/20 04/16/20 04/16/20 04:25 04:25 04:25 WBC RBC Hgb Hct MCV MCH MCHC RDW Plt Count MPV Neut # (Auto) Lymph # (Auto) Harney # (Auto) Eos # (Auto) Baso # (Auto) Absolute Nucleated RBC Nucleated RBC % PT 13.6 H INR 1.2 Anti-Xa Level Sodium 140 Potassium 3.4 L Chloride 110 Carbon Dioxide 22 Anion Gap 8.0 BUN 17 Creatinine 1.0 Estimated GFR (MDRD) 74 L Glucose 120 H POC Whole Bld Glucose Calcium 8.4 L Phosphorus 2.9 Magnesium 2.2 Troponin I High Sens 121.1 H* 04/16/20 04/16/20 04/16/20 06:28 09:00 12:47 WBC 5.0 RBC 4.01 L Hgb 12.7 L Hct 38.7 L MCV 96.5 H MCH 31.7 H MCHC 32.8 RDW 12.9 Plt Count 221 MPV 9.8 Neut # (Auto) Lymph # (Auto) Harney # (Auto) Eos # (Auto) Baso # (Auto) Absolute Nucleated RBC Nucleated RBC % PT INR Anti-Xa Level Sodium Potassium Chloride Carbon Dioxide Anion Gap BUN Creatinine Estimated GFR (MDRD) Glucose POC Whole Bld Glucose 116 H 91 Calcium Phosphorus Magnesium Troponin I High Sens - DIAGNOSTIC IMAGING Diagnostic Imaging Results: Final report reviewed - FOLLOW UP Follow Up: He was asked to follow-up with his primary care provider within 1 week and with his development professional. - TIME SPENT Time Spent in Discharge (Minutes): 31"
--- NOTE | 2020-04-16 14:42 | Discharge Plan ---
Discharge Plan Problem Reviewed?: Yes Disposition: Home, Self Care Condition: Stable Prescriptions: Apixaban [Eliquis] 5 mg PO BID #60 tablet Metoprolol Tartrate [Lopressor] 25 mg PO BID #60 tablet Diet: Diabetic Activity Restrictions: Activity as Tolerated Shower Restrictions: No Driving Restrictions: No Instruction Topics: Apixaban oral tablets, Metoprolol tablets, Atrial Fibrillation Dc Health Concerns: You developed atrial fibrillation again after your colonoscopy. You were treated with medications to help control your heart rate and it is now back in normal rhythm. This is the second time this is happened to you now. An ultrasound of your heart did not show any significant abnormalities. You had a stress test performed which did not suggest evidence of heart disease. It is recommended that you take metoprolol and Eliquis to help control your heart rate and decrease your risk of stroke. Plan of Treatment: Please take metoprolol 25 mg twice daily. This is to help control your heart rate. Please take Eliquis 5 mg twice daily. This is a blood thinner to decrease your risk of stroke. Stop taking diltiazem. Care Goals: Please monitor for signs of bleeding now that you are on a blood thinner. The goal is to help control your heart rate if you to go into atrial fibrillation and to decrease your risk of stroke. Additional Instructions or Follow Up instructions: Please follow-up with your primary care provider in 1 week and it is recommended that you follow-up with your head sulfide operator as well. No Smoking: If you smoke, Please STOP! Call for help. Follow-up with: Cristopher Hunt MD [Primary Care Provider] -
--- NOTE | 2020-04-16 15:07 | CARDIAC PROCEDURE NOTE ---
DATE OF SERVICE: 04/16/2020 Physician: Debbie Ray MD INDICATION: Atrial fibrillation. CARDIAC RISK FACTORS: Male gender, diabetes, hypertension. DESCRIPTION OF PROCEDURE: After signing informed consent, the patient underwent a Lexiscan pharmaceutical stress test with nuclear myocardial perfusion imaging. RESTING HEART RATE: 60. PEAK HEART RATE: 85. RESTING BLOOD PRESSURE: 141/91. PEAK BLOOD PRESSURE: 142/75. Lexiscan was infused per protocol. The patient had mild chest pressure after about 5 minutes of the infusion and it was receding spontaneously. He had no shortness of breath or other side effects. Oxygen saturation was normal throughout the test on room air. RESTING EKG: Normal sinus rhythm, first-degree block, left atrial enlargement, left anterior fascicular block, early R/S transition. EKG AT PEAK: No new ST segment or T-wave changes develop. SUMMARY: 1. Abnormal resting EKG. 2. No significant symptoms occurred during pharmaceutical stress testing. 3. No ischemic changes developed on EKG with pharmaceutical stress testing. 4. Nuclear images reported separately and showed: No areas of scar or ischemia. IMPRESSION: Normal pharmaceutical stress test. cc: MD Johnny Ga MD TD: 04/16/2020 12:35 MTDD
--- NOTE | 2020-04-16 15:11 | Nuclear Medicine Report ---
PROCEDURE: Rest and pharmacological stress myocardial perfusion SPECT with gated imaging and ejection fraction INDICATIONS: afib, rvr, delta tropons RADIOPHARMACEUTICAL: 7.7 mCi Tc-99m Myoview IV at rest and 24.7 mCi Tc-99m Myoview IV at peak exerci se. [id number] was performed. TECHNIQUE: Radiopharmaceutical was injected at peak stress test, and also at rest. SPECT images wer e obtained. SPECT myocardial perfusion images were displayed in short axis, horizontal long axis, an d vertical long axis views. Gated images were reviewed using AutoQUANT software. COMPARISON: None available. FINDINGS: Raw data: There is good myocardial labeling by radiotracer. No significant motion artifacts. Lung- to-heart ratio is 0.34 (normal is less than 0.38 for tetrafosmin tracer). Left ventricle function: Gated images demonstrate normal left ventricle wall thickening. No segment al wall motion abnormality. No transient ischemic dilation; TID is 1.02 (normal less than 1.3). The left ventricle resting end-diastolic volume is normal. Left ventricle stress ejection fraction is g reater than 70%; normal values are above 45%. Myocardial perfusion: There is normal distribution of activity in the left and right ventricular jerson cardium. No fixed or reversible perfusion defects. IMPRESSION: 1. Normal myocardial perfusion images. No perfusion defect to suggest myocardial ischemia or infarct. 2. Normal left ventricular volume and systolic function. 3. Please correlate with stress EKG report. PQRS ATTESTATIONS: Measure 322 - Is this imaging test primarily performed on a low-risk surgery patient for preoperative evaluation within 30 days preceding their low-risk non-cardiac surgery? Low-risk surgery is defined as cardiac or myocardial infarction less than 1%, including (but not limited to) endoscopic pr ocedures, superficial procedures, cataract surgery, and excisional breast surgery: Answer: No Measure 323 - Is this imaging test performed primarily for the monitoring of an asymptomatic patient who had percutaneous coronary intervention on the visit date or within 2 years of the visit date? An swer: No Measure 324 - Is this imaging test performed primarily for the initial detection and risk assessment on an asymptomatic, low coronary heart disease patient? Low CHD risk definition = clinicians should consider the maximum number of available patient factors used to estimate risk based on [place] (A TP III criteria), typically age, gender, diabetes, smoking status, and use of blood pressure medicati on, and integrate age appropriate estimates for missing elements, such as LDL or standard blood press ure. Answer: No Reviewed by: Bijan Frye MD on 04/16/2020 3:10 PM PST Approved by: Bijan Frye MD on 04/16/2020 3:10 PM PST Station ID: [id number]
[2020-04-16 16:06] VITALS: BP 153/94
[2020-04-16] MEDS ORDERED: APIXABAN 5 MG TABLET PO SCH (21:00)
== END 2020-04-16 16:15 | disposition home or self-care (01) | DRG 315 ==
LOC: SDS 07:13 → ICU 11:11
PROVIDERS: ADMIT Internal Medicine; ATTEND Internal Medicine
PROC: 0DBK8ZZ Excision of Ascending Colon, Via Natural or Artificial Opening Endoscopic (ICD-10-PCS; principal; 2020-04-15 08:15)
DX: Z12.11 Encounter for screening for malignant neoplasm of colon (principal); K63.5 Polyp of colon; K57.30 Diverticulosis of large intestine without perforation or abscess without bleeding; K52.9 Noninfective gastroenteritis and colitis, unspecified; I95.9 Hypotension, unspecified; N17.9 Acute kidney failure, unspecified; I48.0 Paroxysmal atrial fibrillation; E11.9 Type 2 diabetes mellitus without complications; E78.5 Hyperlipidemia, unspecified; R00.0 Tachycardia, unspecified; R77.8 Other specified abnormalities of plasma proteins; Z79.84 Long term (current) use of oral hypoglycemic drugs; Z79.82 Long term (current) use of aspirin; Z79.899 Other long term (current) drug therapy
CPT/HCPCS: 0202U; 71045; 78452; 80048; 80053; 81001; 81003; 83735; 84100; 84443; 84484; 85025; 85027; 85520; 85610; 87086; 87150; 93005; 93017; 93306

== ENCOUNTER 2021-03-20 07:20 | Day surgery (SDC) | payer MEDICARE ==
[~2021-03-20 07:20] MED LIST: CYCLOPENTOLATE 1% OPHTH DROPS 2 ML ONE; KETOROLAC 0.45% OPHTH DROPS ONE; PHENYLEPHRINE 2.5% OPHTH 2 ML DROPS ONE; PROPARACAINE 0.5% OPHTH DROPS 15 ML ONE
[2021-03-20] MEDS ORDERED: LACTATED RINGERS 1,000 ML IV ONE (07:36)
--- NOTE | 2021-03-20 07:59 | ANESTHESIA ---
Pre-Anesthesia VS, & Labs - Diagnosis cataract - Procedure PhacoIOL Vital Signs: Temp Pulse Resp BP Pulse Ox 36.4 C L 52 L 18 134/80 H 98 03/20/21 07:30 03/20/21 07:30 03/20/21 07:30 03/20/21 07:30 03/20/21 07:30 Height: 6 ft Weight (kg): 103 kg Body Mass Index: 30.8 BMI Classification: Obese - NPO >8 hours - Lab Results Current Lab Results: Laboratory Tests 03/20/21 07:45: POC Whole Bld Glucose 128 H Home Medications and Allergies Simvastatin 20 mg PO QPM 11/17/19 metFORMIN [Glucophage] 500 mg PO DAILY 11/20/19 Allergies/Adverse Reactions: Allergies Allergy/AdvReac Type Severity Reaction Status Date / Time No Known Drug Allergies Allergy Verified 03/20/21 07:41 Anes History & Medical History - Anesthetic History Anesthesia Complications: reports: No previous complications Family history of Anesthesia Complications: Denies Family history of Malignant Hyperthermia: Denies - Medical History Cardiovascular: reports: High cholesterol Pulmonary: reports: None Gastrointestinal: reports: Colon polyps Urinary: reports: None Musculoskeletal: reports: None Endocrine/Autoimmune: reports: Type 2 diabetes Skin: reports: None Smoking Status: Never smoker - Surgical History General: reports: Appendectomy, Colonoscopy Exam General: Alert, Oriented x3, Cooperative Dental: WNL Mouth Openin Fingerbreadth Neck Mobility: Normal Mallampati classification: III Thyromental Distance: less than 4 cm Respiratory: Lungs clear Cardiovascular: Regular rate Plan Anesthesia Type: MAC Consent for Procedure(s) Verified and Reviewed: Yes Code Status: Attempt Resuscitation ASA classification: 2-Mild systemic disease Is this case an emergency?: No
[2021-03-20] MEDS ORDERED: MIDAZOLAM 2 MG/2 ML VIAL ONE (08:11)
[2021-03-20] MEDS ORDERED: TIMOLOL 0.5% OPHTH DROPS OPTH ONE (08:34)
[2021-03-20] MEDS ORDERED: BRIMONIDINE 0.2% OPHTH DROPS 5 ML OPTH ONE (08:34)
[2021-03-20] MEDS ORDERED: EPINEPHrine 1 MG/ML AMP IR ONE (08:34)
[2021-03-20] MEDS ORDERED: PROPARACAINE 0.5% OPHTH DROPS 15 ML EACHEYE ONE (08:35)
[2021-03-20] MEDS ORDERED: BSS/LIDOCAINE/EPINEPHRINE 1 ML SYRINGE IO ONE (08:35)
[2021-03-20] MEDS ORDERED: TRIAMCIN/MOXIFLOX OPHTHALMIC 0.6 ML VIAL IO ONE ×2 (08:35→13:37)
[2021-03-20] MEDS ORDERED: VANCOMYCIN OPHTHALMI 8MG/0.8ML 8 MG/0.8 ML SYRINGE IO ONE ×2 (08:36→13:38)
[2021-03-20] MEDS ORDERED: LACTATED RINGERS 800 ML IV ONE (08:48)
--- NOTE | 2021-03-20 09:03 | OPERATIVE REPORT ---
Operative Report - Other Other Information/Narrative: Date of Surgery: 03/20/21 Preop Dx: Visually significant cataract right eye. This was the first cataract surgery. Postop Dx: Same Procedure: Phacoemulsification with posterior chamber intraocular lens implant right eye Surgeon: Dr. David Lock Anesthesia: Monitored anesthesia care Complications: None Operative Indications: This is a 70-year-old M with progressive vision loss in the right eye due to 2+ nuclear sclerotic and 3+ cortical cataract. Best corrected visual acuity was 20/20 with glare to 20/100 vision in the right eye. Indications for surgery were: - Overall decrease in vision - Difficulty seeing words, closed captions, or game scores on TV - Difficulty seeing street signs - Difficulty driving at night because of headlights from other vehicles The patient was consented at length concerning the risks and benefits of cataract surgery after which the patient expressed a desire to proceed with surgery. Operative Procedure: The patient was taken into OR#3 and placed under monitored anesthesia care. A surgical time-out was conducted confirming correct patient, correct procedure, and correct surgical site. The patient was given topical anesthesia and then prepped and draped in the usual sterile fashion. The eye was entered at the 6 and 3 oclock positions. Intracameral Shugarcaine was injected into the anterior chamber followed by a dispersive viscoelastic. A continuous-tear curvilinear capsulorhexis was performed. The nucleus was hydrodissected and phacoemulsified. The cortex was evacuated using automated infusion and aspiration. A cohesive viscoelastic was injected into the capsular bag and a 16.0 diopter multifocal intraocular lens was inserted into the bag. Infusion and aspiration were used to evacuate the viscoelastic materials from the eye. The wounds were hydrated and the eye inflated to physiologic pressure using balanced salt solution. Approximately 0.25ml of a mixture of triamcinolo ne and moxifloxacin was injected trans-sclerally into the vitreous in the inferotemporal quadrant using a 30 gauge cannula. An additional 0.55ml of a mixture of triamcinolone, moxifloxacin, and vancomycin was injected subconjunctivally in the superior quadrant for infection and inflammation prophylaxis. Wound integrity was checked with Weck-Manuela sponges. The patient was taken from the operating room in good condition and given post-op instructions.
[2021-03-20 09:06] VITALS: BP 128/79
[2021-03-20] MEDS ORDERED: EPINEPHrine 1 MG/ML AMP ONE (13:37)
[2021-03-20] MEDS ORDERED: TIMOLOL 0.5% OPHTH DROPS ONE (13:38)
[2021-03-20] MEDS ORDERED: BRIMONIDINE 0.2% OPHTH DROPS 5 ML ONE (13:38)
[2021-03-20] MEDS ORDERED: BSS/LIDOCAINE/EPINEPHRINE 1 ML SYRINGE ONE (13:38)
== END 2021-03-20 07:21 | disposition home or self-care (01) ==
LOC: SDS 07:20
PROVIDERS: ATTEND Ophthalmology
DX: E11.36 Type 2 diabetes mellitus with diabetic cataract (principal); H25.811 Combined forms of age-related cataract, right eye; Z79.84 Long term (current) use of oral hypoglycemic drugs; E66.9 Obesity, unspecified; Z68.30 Body mass index [BMI] 30.0-30.9, adult; I48.91 Unspecified atrial fibrillation
CPT/HCPCS: 66984; A9270; J3490; J7120; V2632

== ENCOUNTER 2021-05-08 06:14 | Day surgery (SDC) | payer MEDICARE ==
[2021-05-08] MEDS ORDERED: LACTATED RINGERS 1,000 ML IV ONE ×2 (06:19→07:50)
[2021-05-08] MEDS ORDERED: CYCLOPENTOLATE 1% OPHTH DROPS 2 ML ONE (06:20)
[2021-05-08] MEDS ORDERED: KETOROLAC 0.45% OPHTH DROPS ONE (06:20)
[2021-05-08] MEDS ORDERED: PHENYLEPHRINE 2.5% OPHTH 2 ML DROPS ONE (06:20)
[2021-05-08] MEDS: PROPARACAINE 0.5% OPHTH DROPS 15 ML ONE ×2 (06:39→06:43)
[2021-05-08] MEDS ORDERED: fentaNYL 100 MCG/2 ML VIAL ONE (07:10)
[2021-05-08] MEDS ORDERED: MIDAZOLAM 2 MG/2 ML VIAL ONE (07:10)
[2021-05-08] MEDS ORDERED: TRIAMCIN/MOXIFLOX OPHTHALMIC 0.6 ML VIAL IO ONE ×2 (07:11→07:38)
[2021-05-08] MEDS ORDERED: LIDOCAINE-PF 2% 10 ML AMP SUBQ ONE (07:11)
[2021-05-08] MEDS ORDERED: TIMOLOL 0.5% OPHTH DROPS ONE (07:11)
[2021-05-08] MEDS ORDERED: BRIMONIDINE 0.2% OPHTH DROPS 5 ML ONE (07:11)
--- NOTE | 2021-05-08 07:19 | ANESTHESIA ---
Pre-Anesthesia VS, & Labs - Diagnosis L cataract - Procedure L phacoIOL Vital Signs: Temp Pulse Resp BP Pulse Ox 36.0 C L 56 L 16 132/87 H 97 05/08/21 06:26 05/08/21 06:26 05/08/21 06:26 05/08/21 06:26 05/08/21 06:26 Height: 6 ft Weight (kg): 102 kg Body Mass Index: 30.4 BMI Classification: Obese - NPO >8 hours - Lab Results Current Lab Results: Laboratory Tests 05/08/21 06:42: POC Whole Bld Glucose 122 H Home Medications and Allergies Home Medications: Ambulatory Orders Rivaroxaban [Xarelto] 20 mg BID 05/07/21 Simvastatin 20 mg PO QPM 11/17/19 metFORMIN [Glucophage] 500 mg PO DAILY 11/20/19 Rivaroxaban [Xarelto] 20 mg BID 05/07/21 Allergies/Adverse Reactions: Allergies Allergy/AdvReac Type Severity Reaction Status Date / Time No Known Drug Allergies Allergy Verified 03/20/21 07:41 Anes History & Medical History - Anesthetic History Anesthesia Complications: reports: No previous complications Family history of Anesthesia Complications: Denies Family history of Malignant Hyperthermia: Denies - Medical History Cardiovascular: reports: High cholesterol, Atrial fibrillation Pulmonary: reports: None Gastrointestinal: reports: Colon polyps Urinary: reports: None Musculoskeletal: reports: None Endocrine/Autoimmune: reports: Type 2 diabetes Skin: reports: None Smoking Status: Never smoker - Surgical History General: reports: Appendectomy, Colonoscopy Eyes Ears Nose Throat (EENT): reports: Cataracts Exam General: Alert, Oriented x3, Cooperative Dental: WNL Mouth Openin Fingerbreadth Neck Mobility: Normal Mallampati classification: II Thyromental Distance: 4-6 cm Respiratory: Lungs clear Cardiovascular: Regular rate Plan Anesthesia Type: MAC Consent for Procedure(s) Verified and Reviewed: Yes Code Status: Attempt Resuscitation ASA classification: 2-Mild systemic disease Is this case an emergency?: No
[2021-05-08] MEDS ORDERED: PROPARACAINE 0.5% OPHTH DROPS 15 ML EACHEYE ONE (07:35)
[2021-05-08] MEDS ORDERED: EPINEPHrine 1 MG/ML AMP IR ONE (07:35)
[2021-05-08] MEDS ORDERED: TIMOLOL 0.5% OPHTH DROPS OPTH ONE (07:35)
[2021-05-08] MEDS ORDERED: BRIMONIDINE 0.2% OPHTH DROPS 5 ML OPTH ONE (07:35)
[2021-05-08] MEDS ORDERED: BSS/LIDOCAINE/EPINEPHRINE 1 ML SYRINGE IO ONE (07:37)
[2021-05-08 08:20] VITALS: BP 116/65
--- NOTE | 2021-05-08 09:06 | OPERATIVE REPORT ---
Operative Report - Other Other Information/Narrative: Date of Surgery: 05/08/21 Preop Dx: Visually significant cataract left eye. Cataract surgery was performed in the right eye on . Postop Dx: Same Procedure: Phacoemulsification with posterior chamber intraocular lens implant left eye Surgeon: Dr. 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 Best corrected visual acuity was 20/20 with glare to 20/300 vision in the left eye. Indications for surgery were: - Overall decrease in vision - Difficulty seeing words on a computer screen - Difficulty seeing words, closed captions, or game scores on TV - Difficulty driving at night because of headlights from other vehicles - Difficulty with glare or bright lights in any situation The patient was consented at length concerning the risks and benefits of cataract surgery after which the patient expressed a desire to proceed with surgery. Operative Procedure: The patient was taken into OR#3 and placed under monitored anesthesia care. A surgical time-out was conducted confirming correct patient, correct procedure, and correct surgical site. The patient was given topical anesthesia and then prepped and draped in the usual sterile fashion. The eye was entered at the 6 and 3 oclock positions. Intracameral Shugarcaine was injected into the anterior chamber followed by a dispersive viscoelastic. A continuous-tear curvilinear capsulorhexis was performed. The nucleus was hydrodissected and phacoemulsified. The cortex was evacuated using automated infusion and aspiration. A cohesive viscoelastic was injected into the capsular bag and a 17.0 diopter multifocal intraocular lens was inserted into the bag. Infusion and aspiration were used to evacuate the viscoelastic materials from the eye. The wounds were hydrated and the eye inflated to physiologic pressure using balanced salt solution. Approximately 0.25ml of a mixture of triamcinolone and moxifloxacin was injected trans-sclerally into the vitreous in the inferotemporal quadrant using a 30 gauge cannula. An additional 0.55ml of a mixture of triamcinolone and moxifloxacin was injected subconjunctivally in the superior quadrant for infection and inflammation prophylaxis. Wound integrity was checked with Weck-Manuela sponges. The patient was taken from the operating room in good condition and given post-op instructions.
--- NOTE | 2021-05-08 10:04 | ANESTHESIA POST OP EVALUATION ---
Anesthesia Post Eval - Post Anesthesia Eval Vitals: Last Vital Signs Temp 36.7 C 05/08/21 08:18 Pulse 57 L 05/08/21 08:18 Resp 16 05/08/21 08:18 BP 116/65 05/08/21 08:18 Pulse Ox 95 05/08/21 08:18 CV Function Including HR & BP: Stable Pain Control: Satisfactory Nausea & Vomiting: Negative Mental Status: Baseline Respiratory Status: Airway Patent Hydration Status: Satisfactory Anesthesia Complications: None
== END 2021-05-08 06:15 | disposition home or self-care (01) ==
LOC: SDS 06:14
PROVIDERS: ATTEND Ophthalmology
DX: E11.36 Type 2 diabetes mellitus with diabetic cataract (principal); H25.812 Combined forms of age-related cataract, left eye; Z79.84 Long term (current) use of oral hypoglycemic drugs; I48.91 Unspecified atrial fibrillation; Z79.01 Long term (current) use of anticoagulants; Z98.41 Cataract extraction status, right eye; E66.9 Obesity, unspecified; Z68.30 Body mass index [BMI] 30.0-30.9, adult
CPT/HCPCS: 66984; A9270; J3490; J7120; V2632; V2787